=== PATIENT | female | born 1945 | race Caucasian/White ===

== ENCOUNTER → 2016-05-08 | Outpatient (CLI) | payer MEDICARE, MEDICAID ==
[~2016-05-08] MED LIST: ALTACE5 MG PO; AMARYL4 MG PO; ASPIRIN EC81 MG PO; CPAP INH; CRESTOR40 MG PO; FISH OIL 1,2001 EAC2 PO; IMDUR30 MG PO; LANTUS (IN100 UNIT/M SUB-Q; LASIX40 MG PO; LOPRESSOR50 MG PO; NITROSTAT0.4 MG SL; OXYGEN M-15 INH; PRILOSEC20 MG PO; RANEXA ER500 MG PO; TRENTELLIX PO; TYLENOL/COD#31 TAB PO; VICTOZA SUB-Q; VITAMIN D1000 UNIT PO; ZETIA10 MG PO
--- NOTE | ~2016-05-08 | PUL ---
PATIENT'S NAME: SHON SOTO [facility] AGE: 71 Y [address] ROOM: [place] [address] LOCATION: [facility] ADMIT DATE: 05/08/2016 Pulmonary DISCHARGE DATE: FAMILY PHYSICIAN: Annmarie Gillis MD ATTENDING PHYSICIAN: Annmarie Gillsi NAME OF PROCEDURE: Sleep study DATE OF PROCEDURE: 05/08/16 TECH: Sherly Chan, SUPERVISOR BILLPOSTING TEST #: [facility] [place] [id number] MEDICAL HISTORY: Patient is a 70-year-old overweight woman with a history of persistent daytime sleepiness and a history of obstructive sleep apnea. This study was done to titrate CPAP. SLEEP STAGE SUMMARY: The patient was studied for 502 minutes of which she slept 471 minutes. She fell asleep in 5 minutes and slept for 94% of the night. Sleep architecture revealed a decline in slow wave and REM sleep. RESPIRATORY SUMMARY: Oxygen saturations ranged from 85-93%. CPAP was initiated at 6 cm and appeared to completely control any of the respiratory events. EKG SUMMARY: A paced rhythm was seen throughout the study. Occasional premature beats were noted. LIMB MOVEMENT SUMMARY: There were frequent periodic limb movements particularly early in the study. These may be clinically relevant. Would assess the patient for symptoms related to these and consider treating. ASSESSMENT: History of obstructive sleep apnea which appears to be totally controlled on 6 cm of CPAP, which raises the question of whether the patient actually has sleep apnea or not. The patient probably has periodic limb movement disorder and this may warrant treatment. PLAN: Patient will receive results from the ordering provider. ERIKA FRANCO MD PATIENT'S NAME: SHON SOTO [facility] AGE: 71 Y [address] ROOM: [place] [address] LOCATION: [facility] ADMIT DATE: 05/08/2016 Pulmonary DISCHARGE DATE: FAMILY PHYSICIAN: Annmarie Gillis MD ATTENDING PHYSICIAN: Annmarie Gillis [facility]/ /[id number] dtt: 05/14/16 1455 , Erika Franco dtd: 05/13/16 1633
== END | disposition disaster alternative care site (69) ==
LOC: GSLP 20:26
DX: G47.30 Sleep apnea, unspecified (principal)

== ENCOUNTER 2016-06-05 17:47 | Emergency (ER) | payer MEDICARE, MEDICAID ==
--- NOTE | ~2016-06-05 | ER ---
PATIENT'S NAME: SHON SOTO [facility] AGE: 71 Y [address] ROOM: [place] [address] LOCATION: ED ADMIT DATE: 06/05/2016 ER/Outpatient Report DISCHARGE DATE: 06/05/2016 FAMILY PHYSICIAN: Annmarie Gillis MD ATTENDING PHYSICIAN: Eliseo Loyd HISTORY OF PRESENT ILLNESS: This is a 71-year-old female who presents today with chief complaint of shortness of breath. She reports that it has been ongoing for 2 days. She reports that she has a dry cough. She also had one episode of diarrhea today. She denies any chest pain. She says she has also been tired but was recently diagnosed with UTI and she is on antibiotics for that. She denies any pain on inspiration. No numbness or tingling. No fever or chills. No muscle aches. She also complains of some left-sided back pain that radiates down to her leg but says that it has been ongoing for months. The patient says that she is not short of breath with exertion, she just feels like she cannot catch her breath and this has been ongoing for the last few days. PAST MEDICAL HISTORY: She has a history of PE, but she has been taken off all anticoagulation about two and half years ago; insulin-dependent diabetes; hypertension; coronary artery disease. PAST SURGICAL HISTORY: Includes stent surgery, back surgery, appendectomy. SOCIAL HISTORY: She does not smoke, drink, or use any drugs. MEDICATIONS: Please see med list. ALLERGIES: NONE. REVIEW OF SYSTEMS: Reviewed by me and negative with the exception of those discussed in HPI. PHYSICAL EXAMINATION: VITAL SIGNS: The patient's height is 5 feet 1 inch, she weighs 89.4 kilograms, heart rate 68, respiratory rate 18, temperature is 98.1, saturating 95% on room air. GENERAL: The patient does not appear in acute distress. She does not appear lethargic. She is not pale. She does not have any labored breathing. Speaking to me in full sentences. PATIENT'S NAME: SHON SOTO [facility] AGE: 71 Y [address] ROOM: [place] [address] LOCATION: ED ADMIT DATE: 06/05/2016 ER/Outpatient Report DISCHARGE DATE: 06/05/2016 FAMILY PHYSICIAN: Annmarie Gillis MD ATTENDING PHYSICIAN: Eliseo Loyd NEUROLOGIC: Alert and oriented x4. GCS is 15. HEENT: She has no nasal drainage. No sinus pressure. Throat is clear. NECK: She has no cervical lymphadenopathy. HEART: Regular rate and rhythm at this time. LUNGS: Her lung sounds are clear. Slightly diminished at the bases, but there is no wheezing, rales, or rhonchi. She has no retractions. No accessory muscle use. The patient occasionally dips down to like 93%, but when she takes deep breaths, it goes right back up to like 98-99%. ABDOMEN: She is obese, but soft, nontender, and nondistended. BACK: She has no midline tenderness. No CVA tenderness. EXTREMITIES: She was able to walk in here as well. SKIN: Warm and dry. EMERGENCY DEPARTMENT COURSE: First of all, we did an EKG which showed sinus rhythm, some Q-waves in III and aVF, some nonspecific ST changes throughout, biphasic T-waves in I and aVL, and some flattened T-waves that are pretty nonspecific in the other precordial leads. No inverted T-waves in the precordial leads. I compared this to an EKG that was done on 03/16/2014 and it looks pretty much the same. She still has those biphasic T-waves in I and aVL and Q-waves in III and AVF. Today, there is no ST elevation or ST depression, no rightward axis deviation either. We also checked a CBC which showed a white count of 7.3, H and H 14.3/44.4, platelets are 229. She has no bandemia. CRP is not elevated at 0.58. Sodium was 142, potassium 4.8, chloride 108, CO2 of 25, anion gap 13.8, BUN 18, creatinine 1.1. Total bilirubin was 0.5, alkaline phosphatase 71, AST 21, ALT 23. GFR is 49. CPK was 70, CK-MB was 1.3. Troponin I was less than 0.04. Procalcitonin was less than 0.05. The D-dimer was elevated though at 1.08, so we did proceed to do a CT chest to rule out PE that was read by Dr. Lopez as negative for PE. I went back to discuss with the patient who seems satisfied that all her blood work is pretty unremarkable and she does not have a PE. We will be sending her home. I said I would give her some Flexeril for her back pain. She will follow up appropriately. IMPRESSION: Shortness of breath. MD MARC HULL/brenda /[id number] d: 06/06/16 0525 t: 06/07/16 1816, OUTPATIENT REPORT
[2016-06-05 18:31] LABS: BASOPHIL # 0.1 K/uL (0.0-0.2); EOSINOPHIL # 0.2 K/uL (0.0-0.5); EOSINOPHIL % 2.6 %; HEMATOCRIT 44.4 % (33.0-46.0); HEMOGLOBIN 14.3 g/dL (10.0-15.0); IMMATURE GRANULOCYTE % 0.1 %; LYMPHOCYTE # 2.3 K/uL (0.8-4.0); LYMPHOCYTE % 31.1 %; MCH 27.9 pg (27.0-34.0); MCHC 32.2 gm/dL (32.0-36.5); MCV 86.5 fl (83.0-98.0); MONOCYTE # 0.5 K/uL (0.0-1.0); MONOCYTE % 6.1 %; MPV 10.5 fl (9.4-12.4); NEUTROPHIL # (ANC) 4.3 K/uL (1.8-7.8); NEUTROPHIL % 59.1 %; NRBC % 0 /100WBC (0-0.00); PLATELET COUNT 229 K/uL (150-450); RBC 5.13 M/uL (3.50-5.50); RDW-CV 13.4 % (11.9-14.6); WBC 7.3 K/uL (4.0-11.0)
[2016-06-05 18:48] LABS: ALBUMIN 3.1 gm/dL (3.5-5.0); ALK PHOS 71 IU/L (33-138); ALT 23 IU/L (12-78); ANION GAP 13.8 (10.0-19.0); AST 21 IU/L (10-40); BLOOD UREA NITROGEN 18 mg/dL (6-24); CALCIUM 8.2 mg/dL (8.5-10.5); CHLORIDE 108 mMol/L (96-110); CO2 25 mMol/L (22-32); CPK 70 IU/L (21-215); CREATININE 1.1 mg/dL (0.5-1.1); ESTIMATED GFR (MDRD EQUATION) 49; POTASSIUM 4.8 mMol/L (3.7-5.1); SODIUM 142 mMol/L (135-145); TOTAL BILIRUBIN 0.5 mg/dL (0.0-1.5); TOTAL PROTEIN 6.1 g/dL (6.0-8.4)
== END 2016-06-05 21:17 | disposition disaster alternative care site (69) ==
LOC: GMED 17:47
PROVIDERS: Emergency Medicine
DX: R06.02 Shortness of breath (principal); I10 Essential (primary) hypertension; I25.10 Atherosclerotic heart disease of native coronary artery without angina pectoris; E11.9 Type 2 diabetes mellitus without complications; Z86.711 Personal history of pulmonary embolism; Z79.01 Long term (current) use of anticoagulants; Z90.49 Acquired absence of other specified parts of digestive tract; Z98.890 Other specified postprocedural states; Z79.82 Long term (current) use of aspirin; Z79.899 Other long term (current) drug therapy; Z79.4 Long term (current) use of insulin
CPT/HCPCS: Q9967

== ENCOUNTER → 2016-06-11 | Outpatient (CLI) | payer MEDICARE, MEDICAID | END | disposition disaster alternative care site (69) | LOC: LFPA 16:13 | DX: F99 Mental disorder, not otherwise specified (principal); R79.89 Other specified abnormal findings of blood chemistry; E11.42 Type 2 diabetes mellitus with diabetic polyneuropathy ==

== ENCOUNTER → 2016-06-12 | Outpatient (CLI) | payer MEDICARE, MEDICAID | END | disposition disaster alternative care site (69) | LOC: GRAD 06-11 17:00 | DX: F99 Mental disorder, not otherwise specified (principal) ==